=== PATIENT | female | born 1990 | race Caucasian/White ===

== ENCOUNTER 2017-01-09 08:13 | Emergency (ER) | payer OTHER ==
[~2017-01-09] VITALS: Ht 180.3 cm; Wt 68.0 kg
[~2017-01-09 08:13] MED LIST: IBUP600T26 PO; PERI8.6T PO; [UNRECOGNIZED DRUG - OTHER] PO
[2017-01-09 08:16] VITALS: BP 140/83; PULSE 87; RESP 13; TEMP 98.2; O2SAT 87
[2017-01-09] MEDS ORDERED: TETANUS/DIPHTHERIA TOXOID ADULT 0.5 ML VIAL IM ONE (08:45)
[2017-01-09] MEDS ORDERED: LIDOCAINE 2%/EPINEPHrine 1:100,000 20ML MDV NERV BLOCK ONE (08:45)
[2017-01-09] MEDS ORDERED: CEPH-460 PO (10:02)
--- NOTE | 2017-01-09 10:07 | PD ---
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 Patient states the ceiling tile at her workplace fell and caused laceration. She denies numbness, tingling, or lack of function. Bleeding is currently controlled with a pressure dressing applied at the workplace. Patient is unsure of her last tetanus shot. Pain is 6 out of 10. She has no known drug allergies. PFSH Past Medical History Asthma: Yes (CHILDHOOD-NO MEDS) : 1 Past Surgical History Tonsillectomy: Yes Social History Alcohol Use: No Tobacco Use: No Substance Use: No Allergies-Medications (Allergen,Severity, Reaction): Coded Allergies: No Known Allergies (Unverified , 09/05/14) Reported Meds & Prescriptions Reported Meds & Active Scripts Active Ibuprofen 600 Mg Tab 600 Mg PO TID Tricia-Colace 8.6-50 mg (Sennosides-Docusate Sodium) 1 Tab Tab 1 Tab PO BID PRN Reported [ Vitamin OTC] PO PRN 30 Days Review of Systems Except as stated in HPI: all other systems reviewed are Neg General / Constitutional: No: Fever Eyes: No: Visual changes HENT: No: Headaches Cardiovascular: No: Chest Pain or Discomfort Respiratory: No: Shortness of Breath Gastrointestinal: No: Abdominal Pain Genitourinary: No: Dysuria Musculoskeletal: No: Pain Skin: No Rash Neurologic: No: Weakness Psychiatric: No: Depression Endocrine: No: Polydipsia Hematologic/Lymphatic: No: Easy Bruising Physical Exam Narrative GENERAL: Patient appears no acute distress. SKIN: Warm and dry. Patient has a full-thickness C-shaped flap-like laceration to the dorsal left proximal third phalanx just over the MIP joint. Neurovascular exam is normal distally. Normal capillary refill is noted. HEAD: Atraumatic. Normocephalic. EYES: Pupils equal and round. No scleral icterus. No injection or drainage. ENT: No nasal bleeding or discharge. Mucous membranes pink and moist. Pharynx is clear. Airway is patent. NECK: Trachea midline. Supple nontender. CARDIOVASCULAR: Regular rate and rhythm. RESPIRATORY: No accessory muscle use. Clear to auscultation. Breath sounds equal bilaterally. MUSCULOSKELETAL: Extremities without clubbing, cyanosis, or edema. No obvious deformities. Range of motion is full and strength is normal in the affected finger on the left hand. Tendon is visible and no laceration but no signs of injury are noted. NEUROLOGICAL: Awake and alert. No obvious cranial nerve deficits. Motor grossly within normal limits. Five out of 5 muscle strength in the arms and legs. Normal speech. PSYCHIATRIC: Appropriate mood and affect; insight and judgment normal. Data Data Last Documented VS Vital Signs Date Time Temp Pulse Resp B/P (MAP) Pulse Ox O2 Delivery O2 Flow Rate FiO2 01/09/17 08:16 98.2 87 13 140/83 (102) 87 Orders Orders Lidocai-Epi 2%-1:100,000 Inj (Xylocaine- (01/09/17 08:45) Tetanus/Diphtheria Tox Adult (Tetanus/Di (01/09/17 08:45) MDM Medical Decision Making Medical Screen Exam Complete: Yes Emergency Medical Condition: Yes Differential Diagnosis Workplace injury. Laceration. Possible tendon injury. Need for tetanus. Narrative Course Patient is medically stable at time of exam. No tendon injury is suspected at exam. Laceration is repaired. See procedure note. Tetanus is given IM. Patient is placed on Keflex 500 mg 3 times a day 7 days. Worker's Comp. forms are completed. Patient follow-up with her Worker's Comp. provider in the next 7-10 days for wound check and suture removal. Patient follow-up. Any time with concerning symptoms as needed. Diagnosis Primary Impression: Work related injury Additional Impressions: Work place accident Laceration of left hand without complication, including fingers Qualified Codes: S61.412A - Laceration without foreign body of left hand, initial encounter; S61.219A - Laceration without foreign body of unspecified finger without damage to nail, initial encounter Patient Instructions: Finger Laceration (ED), General Instructions Additional Instructions: No tendon injury is suspected at exam. Laceration is repaired. See procedure note. Tetanus is given IM. Patient is placed on Keflex 500 mg 3 times a day 7 days. Worker's Comp. forms are completed. Patient follow-up with her Worker's Comp. provider in the next 7-10 days for wound check and suture removal. Patient follow-up. Any time with concerning symptoms as needed. Med/Other Pt SpecificInfo: Prescription(s) given Scripts Cephalexin (Keflex) 500 Mg Capsule 500 MG PO Q8H for Infection for 7 Days, #21 CAP 0 Refills Prov: Sy Ferrara MD 01/09/17 Disposition: 01 DISCHARGE HOME Condition: Stable Iraj Wu Jan 09, 2017 10:07
== END 2017-01-09 10:20 | disposition home or self-care (01) ==
LOC: NEPK 08:13
DX: S61.213A Laceration without foreign body of left middle finger without damage to nail, initial encounter (principal); W20.1XXA Struck by object due to collapse of building, initial encounter; Y99.0 Civilian activity done for income or pay; Z23 Encounter for immunization
CPT/HCPCS: 12001; 90471; 90714